=== PATIENT | female | born 1975 | race Caucasian/White ===

== ENCOUNTER 2017-05-12 14:08 | Inpatient (IN) | payer OTHER ==
[2017-05-12] MEDS ORDERED: BUTORPHANOL TARTRATE 1 MG/ML VIAL IVPUSH PRN (15:10)
[2017-05-12] MEDS ORDERED: PROMETHAZINE HCL 25 MG/1 ML VIAL IVPUSH ONE (15:10)
[2017-05-12] MEDS ORDERED: OXYTOCIN 15 UNITS/ LR 250 ML 250 ML IVPB SCH (15:15)
[2017-05-12] MEDS ORDERED: ELECTROLYTE-148 SOLN 1,000 ML IV SCH (15:15)
--- NOTE | 2017-05-12 15:27 | HP ---
Past Medical History - Primary Care Physician PCP:: Gregory Shanks - Admission Chief Complaint: 39 weeks, GDM, AMA. multiparity - Past Medical History Endocrine: Yes: Diabetes Mellitus (diet controlled) - Past Surgical History Hx Myomectomy: No Hx Transabdominal Cerclage: No - Smoking History Smoking history: Never smoked Have you smoked in the past 12 months: No - Alcohol/Substance Use Hx Alcohol Use: No - Social History History of Recent Travel: No Home Medications - Allergies Allergies/Adverse Reactions: Allergies Allergy/AdvReac Type Severity Reaction Status Date / Time No Known Allergies Allergy Verified 05/12/17 14:59 - Home Medications Home Medications: Ambulatory Orders Pnv No.25/Iron Fumarate/FA/Dha [-1 Capsule] 1 each PO DAILY 10/05/12 Review of Systems - Review of Systems Constitutional: reports: No Symptoms, Weakness Eyes: reports: No Symptoms HENT: reports: No Symptoms Neck: reports: No Symptoms Cardiovascular: reports: No Symptoms Respiratory: reports: No Symptoms Gastrointestinal: reports: No Symptoms Genitourinary: reports: No Symptoms Breasts: reports: No Symptoms Reported Musculoskeletal: reports: No Symptoms Integumentary: reports: No Symptoms Neurological: reports: No Symptoms Endocrine: reports: No Symptoms Hematology/Lymphatic: reports: No Symptoms Psychiatric: reports: No Symptoms Physical Exam - Maternity Vital Signs: Vital Signs Temperature 98.1 F 05/12/17 14:10 Pulse Rate 96 H 05/12/17 14:10 Respiratory Rate 20 05/12/17 14:10 Blood Pressure 130/65 05/12/17 14:10 O2 Sat by Pulse Oximetry (%) Constitutional: Yes: Well Nourished, No Distress, Calm Eyes: Yes: WNL, Conjunctiva Clear, EOM Intact HENT: Yes: WNL, Atraumatic, Normocephalic Neck: Yes: WNL, Supple, Trachea Midline Cardiovascular: Yes: WNL, Regular Rate and Rhythm Breast(s): Yes: WNL - Abdominal Exam/OB Fundal Height: 40 Number of Fetuses: Single Presentation: Vertex Contractions: Yes Regularity: Irregular Intensity: Moderate Monitor Mode: External Heart Rate Location: [facility] Category: I Accelerations: Uniform - Vaginal Exam/OB Speculum Exam: No Dilatation (cm): 4 cm Effacement (%): 80 Amniotic Membrane Status: Intact Station: -2 - Physical Exam Musculoskeletal: Yes: WNL Extremities: Yes: WNL Integumentary: Yes: WNL Deep Tendon Reflex Grade: Normal +2 Psychiatric: Yes: WNL Hemorrhage Risk Assessment - Risk Factors Risk Score: 2 Risk Level: High Risk Problem List - Problems (1) with 39 completed weeks gestation Code(s): Z3A.39 - 39 WEEKS GESTATION OF (2) Gestational diabetes mellitus (GDM) Code(s): O24.419 - GESTATIONAL DIABETES MELLITUS IN , UNSP CONTROL Qualifiers: Gestational diabetes mellitus control: diet-controlled Trimester: third trimester Qualified Code(s): O24.410 - Gestational diabetes mellitus in , diet controlled (3) Advanced maternal age (AMA) in Code(s): [id number] - (4) Multiparity, grand, in labor and delivery Code(s): O09.40 - SUPERVISION OF W GRAND MULTIPARITY, UNSP TRIMESTER Qualifiers: Trimester: third trimester Qualified Code(s): O09.43 - Supervision of with grand multiparity, third trimester Assessment/Plan plan admit, pitocin stimulation, fhm
[2017-05-12 15:46] VITALS: BMI 30.6
[2017-05-12 16:27] LABS: BASOPHIL 0.1 % (0-2.0); EOSINOPHIL 0.4 % (0-4.5); MCH 28.7 pg (25.7-33.7); MCHC 32.6 g/dl (32.0-36.0); MEAN PLT VOLUME 8.6 fl (7.5-11.1); NEUTROPHILS 77.4 % (42.8-82.8); PLATELET COUNT 231 K/MM3 (134-434); WHITE BLOOD COUNT 11.8 K/mm3 (4.0-10.0)
[2017-05-12 16:33] LABS: ANION GAP 16 (8-16); CALCIUM 8.7 mg/dL (8.5-10.1); CO2 20 mmol/L (21-32); CREATININE 0.5 mg/dL (0.55-1.02); GLUCOSE,RANDOM 83 mg/dL (74-106)
[2017-05-12 16:35] LABS: INR 0.96 (0.82-1.09); PROTHROMBIN TIME (PATIENT) 10.5 SEC (9.98-11.88)
[2017-05-12 16:38] LABS: ACTIVATED PTT 30.2 SECONDS (26.9-34.4)
[2017-05-12] MEDS ORDERED: BISACODYL 10 MG SUPP.RECT RC PRN (17:37)
[2017-05-12] MEDS ORDERED: ACETAMINOPHEN 325 MG TABLET (FP) PO PRN (17:37)
[2017-05-12] MEDS ORDERED: WITCH HAZEL 50% (TUCKS) 40 PAD/JAR PAD TP PRN (17:37)
[2017-05-12] MEDS ORDERED: IBUPROFEN 600 MG TABLET (FP) PO PRN (17:37)
[2017-05-12] MEDS ORDERED: BENZOCAINE 28 GM HEMORRHOIDAL OINTMENT TP PRN (17:37)
[2017-05-12] MEDS ORDERED: METHYLERGONOVINE MALEATE 0.2 MG/1 ML AMP IM PRN (17:37)
[2017-05-12] MEDS ORDERED: BENZOCAINE 20% 57 GM BOTTLE TP PRN (17:37)
[2017-05-12] MEDS ORDERED: D5W-LR W/ 20 UNITS OXYTOCIN 1,000 ML IV SCH (17:45)
[2017-05-12] MEDS: FERROUS SO4 325 MG TABLET (FP) PO SCH (22:23)
--- NOTE | 2017-05-13 02:34 | PN ---
Progress Note (short form) - Note Progress Note: ppd 1 doing well, no c/o voids ok abdomen soft, non tender , no cva uterus firm lochia minimal plan ambualte. cbc, BGM Problem List - Problems (1) with 39 completed weeks gestation Code(s): Z3A.39 - 39 WEEKS GESTATION OF (2) Gestational diabetes mellitus (GDM) Code(s): O24.419 - GESTATIONAL DIABETES MELLITUS IN , UNSP CONTROL Qualifiers: Gestational diabetes mellitus control: diet-controlled Trimester: third trimester Qualified Code(s): O24.410 - Gestational diabetes mellitus in , diet controlled (3) Advanced maternal age (AMA) in Code(s): [id number] - (4) Multiparity, grand, in labor and delivery Code(s): O09.40 - SUPERVISION OF W GRAND MULTIPARITY, UNSP TRIMESTER Qualifiers: Trimester: third trimester Qualified Code(s): O09.43 - Supervision of with grand multiparity, third trimester
[2017-05-13 06:46] LABS: BASOPHIL 0.1 % (0-2.0); EOSINOPHIL 0.2 % (0-4.5); MCH 28.5 pg (25.7-33.7); MCHC 32.6 g/dl (32.0-36.0); MEAN CELL VOLUME 87.4 fl (80-96); MEAN PLT VOLUME 8.3 fl (7.5-11.1); NEUTROPHILS 79.8 % (42.8-82.8); PLATELET COUNT 243 K/MM3 (134-434); RDW 16.4 % (11.6-15.6); WHITE BLOOD COUNT 15.1 K/mm3 (4.0-10.0)
[2017-05-13] MEDS ORDERED: PRENATAL VITAMINS W/ FOLIC ACID TABLET (FP) PO SCH (10:00)
[2017-05-13] MEDS: FERROUS SO4 325 MG TABLET (FP) PO SCH ×2 (10:09→21:37)
[2017-05-13] MEDS: PRENATAL VITAMINS W/ FOLIC ACID TABLET (FP) PO SCH (10:09)
[2017-05-13] MEDS ORDERED: SENNOSIDES/DOCUSATE COMBO (SENNA PLUS) TABLET (UD) PO PRN (22:00)
[2017-05-14] MEDS: PRENATAL VITAMINS W/ FOLIC ACID TABLET (FP) PO SCH (10:12)
[2017-05-14] MEDS: FERROUS SO4 325 MG TABLET (FP) PO SCH (10:12)
--- NOTE | 2017-05-14 10:52 | PN ---
Post Progress Note Post Day: 2 Type of Delivery: Vital Signs: Vital Signs Temperature 97.8 F 05/13/17 23:22 Pulse Rate 75 05/13/17 23:22 Respiratory Rate 18 05/13/17 23:22 Blood Pressure 111/61 05/13/17 23:22 O2 Sat by Pulse Oximetry (%) 99 05/12/17 18:30 Breast Exam: Yes: Soft Abdomen/GI: Yes: Abdomen soft Lochia: Yes: Rubra Lochia, amount: Small Activity: Ambulating - Labs Labs: CBC WBC 15.1 K/mm3 (4.0-10.0) H 05/13/17 06:15 RBC 4.26 M/mm3 (3.60-5.2) 05/13/17 06:15 Hgb 12.2 GM/dL (10.7-15.3) 05/13/17 06:15 Hct 37.3 % (32.4-45.2) 05/13/17 06:15 MCV 87.4 fl (80-96) 05/13/17 06:15 MCH 28.5 pg (25.7-33.7) 05/13/17 06:15 MCHC 32.6 g/dl (32.0-36.0) 05/13/17 06:15 RDW 16.4 % (11.6-15.6) H 05/13/17 06:15 Plt Count 243 K/MM3 (134-434) 05/13/17 06:15 MPV 8.3 fl (7.5-11.1) 05/13/17 06:15 Neutrophils % 79.8 % (42.8-82.8) 05/13/17 06:15 Lymphocytes % 11.9 % (8-40) D 05/13/17 06:15 Monocytes % 8.0 % (3.8-10.2) 05/13/17 06:15 Eosinophils % 0.2 % (0-4.5) 05/13/17 06:15 Basophils % 0.1 % (0-2.0) 05/13/17 06:15 Assessment/Plan asa above dc home see in 6 weeks
[2017-05-14] MEDS ORDERED: DIPHTH,PERTUSS(ACELL),TET 0.5 ML DISP.SYRIN IM ONE (11:00)
[2017-05-14 12:45] VITALS: BP 99/49; PULSE 66; TEMP 98.1
--- NOTE | 2017-05-16 19:02 | DS ---
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 Signs: Vital Signs Temperature 98.1 F 05/14/17 09:00 Pulse Rate 66 05/14/17 09:00 Respiratory Rate 20 05/14/17 09:00 Blood Pressure 99/49 05/14/17 09:00 O2 Sat by Pulse Oximetry (%) 99 05/12/17 18:30 Constitutional: Yes: Well Nourished, No Distress, Calm Eyes: Yes: WNL, Conjunctiva Clear, EOM Intact HENT: Yes: WNL, Atraumatic, Normocephalic Neck: Yes: WNL, Supple, Trachea Midline Cardiovascular: Yes: WNL, Regular Rate and Rhythm Respiratory: Yes: WNL, Regular, CTA Bilaterally Gastrointestinal: Yes: WNL ...Rectal Exam: Yes: WNL Renal/: Yes: WNL ....Post : Yes: Uterus firm, Uterus non-tender, Slight lochia rubra Breast(s): Yes: WNL Musculoskeletal: Yes: WNL Extremities: Yes: WNL Integumentary: Yes: WNL Neurological: Yes: WNL, Alert, Oriented ...Motor Strength: WNL Psychiatric: Yes: WNL, Alert, Oriented Labs: CBC, BMP 05/13/17 06:15 05/12/17 15:43 Delivery - Delivery Vaginal Delivery: Spontaneous (no complication) Type of Anesthesia: None Episiotomy/Laceration: None EBL (cc): 300 Delivery, Single - Stages of Labor Date 1st Stage Initiatied: 05/12/17 Time 1st Stage Initiated: 14:00 Date 2nd Stage Initiated: 05/12/17 Time 2nd Stage Initiated: 17:20 Date of Delivery: 05/12/17 Time of Delivery: 17:29 Time Placenta Delivered: 17:32 Placenta: Yes: Spontaneous - 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 Referrals: Gregory Shanks MD [Staff Physician] - Disposition: HOME - Home Medications Comprehensive Discharge Medication List: Ambulatory Orders Pnv No.25/Iron Fumarate/FA/Dha [-1 Capsule] 1 each PO DAILY 10/05/12
== END 2017-05-14 14:10 | disposition home or self-care (01) | DRG 560 ==
LOC: JLDR 14:08 → J3W 19:58
PROVIDERS: ADMIT Obstetrics & Gynecology; ATTEND Obstetrics & Gynecology
PROC: 10E0XZZ Delivery of Products of Conception, External Approach (ICD-10-PCS; principal; 2017-05-12)
DX: O24.420 Gestational diabetes mellitus in childbirth, diet controlled (principal); O09.523 Supervision of elderly multigravida, third trimester; Z3A.39 39 weeks gestation of pregnancy; Z37.0 Single live birth
CPT/HCPCS: 36415; 59409; 80048; 85025; 85610; 85730; 86593; 86850; 86900; 86901; 90715

== ENCOUNTER 2017-07-07 05:00 | Day surgery (SDC) | payer OTHER ==
[2017-07-07] MEDS ORDERED: DESFLURANE GAS 240 ML BOTTLE IH ONE (13:34)
[2017-07-07 13:48] VITALS: BMI 21.7
[2017-07-07] MEDS ORDERED: LIDOCAINE HCL/PF 2% SDV 5ML VIAL ONE (14:22)
[2017-07-07] MEDS ORDERED: PROPOFOL 20 ML ONE (14:22)
[2017-07-07] MEDS ORDERED: MIDAZOLAM HCL 2 MG/2 ML SINGLE DOSE VIAL ONE (14:22)
[2017-07-07] MEDS ORDERED: SUCCINYLCHOLINE CHLORIDE 200 MG/10 ML VIAL ONE (14:22)
--- NOTE | 2017-07-07 14:27 | HP ---
Past Medical History - Primary Care Physician PCP:: Gregory Shanks - Admission Chief Complaint: stlization History of Present Illness: 42 yo f requesting laparoscopic tubal ligation, risks and ullternatives has explained to patient History Source: Patient Limitations to Obtaining History: Language Barrier - Past Medical History Endocrine: Yes: Diabetes Mellitus (diet controlled) - Past Surgical History Hx Myomectomy: No Hx Transabdominal Cerclage: No - Smoking History Smoking history: Never smoked Have you smoked in the past 12 months: No - Alcohol/Substance Use Hx Alcohol Use: No - Social History History of Recent Travel: No Home Medications - Allergies Allergies/Adverse Reactions: Allergies Allergy/AdvReac Type Severity Reaction Status Date / Time No Known Allergies Allergy Verified 05/12/17 14:59 - Home Medications Home Medications: Ambulatory Orders Pnv No.25/Iron Fumarate/FA/Dha [-1 Capsule] 1 each PO DAILY 10/05/12 Review of Systems - Review of Systems Constitutional: reports: No Symptoms Eyes: reports: No Symptoms HENT: reports: No Symptoms Neck: reports: No Symptoms Cardiovascular: reports: No Symptoms Respiratory: reports: No Symptoms Gastrointestinal: reports: No Symptoms Genitourinary: reports: No Symptoms Breasts: reports: No Symptoms Reported Musculoskeletal: reports: No Symptoms Integumentary: reports: No Symptoms Neurological: reports: No Symptoms Endocrine: reports: No Symptoms Hematology/Lymphatic: reports: No Symptoms Psychiatric: reports: No Symptoms 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 Vital Signs: Vital Signs Temperature 98.2 F 07/07/17 13:48 Pulse Rate 77 07/07/17 13:48 Respiratory Rate 20 07/07/17 13:48 Blood Pressure 99/63 07/07/17 13:48 O2 Sat by Pulse Oximetry (%) 99 07/07/17 13:48 Constitutional: Yes: Well Nourished, No Distress, Calm Eyes: Yes: WNL, Conjunctiva Clear, EOM Intact HENT: Yes: WNL, Atraumatic, Normocephalic Neck: Yes: WNL, Supple, Trachea Midline Cardiovascular: Yes: WNL, Regular Rate and Rhythm Respiratory: Yes: WNL, Regular, CTA Bilaterally Gastrointestinal: Yes: WNL ...Rectal Exam: Yes: WNL Renal/: Yes: WNL Pelvis: Yes: WNL External Genitalia: Yes: Enterocele Vaginal Exam: Yes: Normal Cervix: Yes: Normal Uterus: Yes: Normal Adnexa: Not Palpable: Left, Right Breast(s): Yes: WNL Musculoskeletal: Yes: WNL Extremities: Yes: WNL Integumentary: Yes: WNL Neurological: Yes: WNL, Alert, Oriented ...Motor Strength: WNL Psychiatric: Yes: WNL, Alert, Oriented Problem List - Problem (1) Sterilization Code(s): Z30.2 - ENCOUNTER FOR STERILIZATION Assessment/Plan lparoscopic tubal cauterization, risks of ectopic and failure risks discussed w th patient
[2017-07-07] MEDS ORDERED: ROCURONIUM BROMIDE 50 MG/5 ML VIAL ONE (14:47)
[2017-07-07] MEDS ORDERED: IBUPROFEN 800 MG/8 ML IJ IVPB PRN (15:04)
[2017-07-07] MEDS ORDERED: oxyCODONE HCL 5 MG TABLET PO PRN ×2 (15:04→15:16)
[2017-07-07] MEDS ORDERED: IBUPROFEN 600 MG TABLET (FP) PO PRN (15:04)
[2017-07-07] MEDS ORDERED: ONDANSETRON 4 MG/2 ML VIAL IVPB PRN (15:04)
[2017-07-07] MEDS ORDERED: ELECTROLYTE-148 SOLN 1,000 ML IV SCH (15:15)
[2017-07-07] MEDS ORDERED: ONDANSETRON 4 MG/2 ML VIAL IVPUSH PRN (15:16)
[2017-07-07] MEDS ORDERED: PROMETHAZINE HCL 25 MG/1 ML VIAL IVPUSH PRN (15:16)
[2017-07-07] MEDS ORDERED: ACETAMINOPHEN 1000 MG/100 ML VIAL (NON FORMULARY) IVPB ONE (15:17)
[2017-07-07] MEDS ORDERED: ACETAMINOPHEN INJECTION 100 ML IVPB ONE (15:42)
[2017-07-07 16:22] VITALS: TEMP 97.9
--- NOTE | 2017-07-07 16:38 | OP ---
DATE OF OPERATION: 07/07/2017 PREOPERATIVE DIAGNOSIS: Voluntary sterilization. POSTOPERATIVE DIAGNOSIS: Voluntary sterilization. PROCEDURE: Laparoscopic bilateral tubal cauterization. SURGEON: Gregory Mathur MD ANESTHESIA: General. ANESTHESIOLOGIST: Wan Guillen MD ESTIMATED BLOOD LOSS: 25 mL DESCRIPTION OF OPERATIVE PROCEDURE: Patient was taken to the operating room, and adequate general anesthesia induced. While in lithotomy position, examination under anesthesia revealed external genitalia to be normal. Vagina was normal. Cervix clean; no lesion. Uterus normal size. Adnexa: No masses were palpable. Then, weighted speculum in the vagina. Anterior lip of the cervix was grasped with a single-tooth tenaculum. Uterine cavity was sounded to 6 cm, and Hulka was introduced for manipulation. Then, Cadena was inserted, and then, patient was prepped and draped for the laparoscopy. A small infraumbilical skin incision was made. Veress needle was introduced. Pneumoperitoneum established. A 5-mm trocar was introduced, and then, scope was introduced. Then, under direct vision, a 5-mm trocar was introduced through the suprapubic area. Visualization of the upper abdomen showed it to be normal. Both tubes and ovaries were normal. Cul-de-sac was free of adhesions. Both ovaries were normal. Then, right tube was grasped with the bipolar cautery and cauterized in 3 portions 2 cm apart. The same procedure repeated for the opposite tube. Visualization of both tubes showed adequate cauterization. Then, no bleeding was seen. Abdomen was emptied of all the gas. Instrument withdrawn. Suprapubic and infraumbilical skin incisions were closed with interrupted sutures of 3-0 Biosyn. The patient tolerated the procedure well, left the OR in good condition. GREGORY MATHUR M.D. [id number]
[2017-07-07 18:59] VITALS: BP 105/53; PULSE 90
== END 2017-07-07 18:15 | disposition home or self-care (01) ==
LOC: JASU-SURG 05:00
PROVIDERS: ATTEND Obstetrics & Gynecology
PROC: 0U574ZZ Destruction of Bilateral Fallopian Tubes, Percutaneous Endoscopic Approach (ICD-10-PCS; principal; 2017-07-07 15:00)
DX: Z30.2 Encounter for sterilization (principal)
CPT/HCPCS: 84703; 94760

== ENCOUNTER 2021-04-26 13:29 | Emergency (ER) | payer OTHER ==
[2021-04-26 13:37] VITALS: BMI 27.9
[2021-04-26 15:04] LABS: BASO % 0.8 % (0-2.0); EOS % 0.6 % (0-4.5); HEMATOCRIT 40.4 % (32.4-45.2); HEMOGLOBIN 13.4 GM/dL (10.7-15.3); LYMPH % 27.4 % (8-40); MCH 29.7 pg (25.7-33.7); MCHC 33.1 g/dl (32.0-36.0); MEAN CELL VOLUME 89.7 fl (80-96); MEAN PLT VOLUME 7.8 fl (7.5-11.1); MONO % 6.9 % (3.8-10.2); NEUT % 64.3 % (42.8-82.8); PLATELET COUNT 319 10^3/uL (134-434); RDW 13.9 % (11.6-15.6)
[2021-04-26 15:25] LABS: ALBUMIN 4.2 g/dl (3.4-5.0); CALCIUM 8.9 mg/dL (8.5-10.1)
[2021-04-26 15:26] LABS: BLOOD UREA NITROGEN 13.9 mg/dL (7-18)
[2021-04-26 15:28] LABS: CREATININE 0.7 mg/dL (0.55-1.3)
[2021-04-26 15:30] LABS: BILIRUBIN,TOTAL 0.5 mg/dL (0.2-1); TOT PROT 7.7 g/dl (6.4-8.2)
[2021-04-26 17:48] VITALS: BP 106/72; PULSE 78; TEMP 98.2
== END 2021-04-26 17:45 | disposition home or self-care (01) ==
LOC: JER 13:29
DX: K80.80 Other cholelithiasis without obstruction (principal)
CPT/HCPCS: 36415; 76705-TC; 80053; 83690; 85025; 93005; 93010; 99285-25

== ENCOUNTER 2021-05-07 04:50 | Day surgery (SDC) | payer OTHER ==
[~2021-05-07 04:50] MED LIST: BUPIVACAINE HCL/PF 0.5% (5 MG/ML) 30 ML VIAL IJ ONE
[2021-05-07] MEDS ORDERED: BUPIVACAINE HCL/PF 0.5% (5MG/ML) 10 ML VIAL ONE (11:59)
[2021-05-07 12:29] VITALS: BMI 27.6
[2021-05-07] MEDS ORDERED: SUCCINYLCHOLINE CHLORIDE 200 MG/10 ML SYRINGE ONE (13:09)
[2021-05-07] MEDS ORDERED: MIDAZOLAM HCL 2 MG/2 ML SINGLE DOSE VIAL ONE (13:09)
[2021-05-07] MEDS ORDERED: ROCURONIUM BROMIDE 50 MG/5 ML SYRINGE ONE (13:09)
[2021-05-07] MEDS ORDERED: PROPOFOL 20 ML ONE ×3 (13:09)
[2021-05-07] MEDS ORDERED: ceFAZolin SODIUM 1 GM VIAL IVPB ONE (13:22)
[2021-05-07] MEDS ORDERED: BUPIVACAINE HCL/PF 0.5% (5 MG/ML) 30 ML VIAL IJ ONE (13:32)
[2021-05-07] MEDS ORDERED: NEOSTIGMINE METHYLSULFATE 0.5 MG/ML - 10 ML MDV ONE (14:20)
[2021-05-07] MEDS ORDERED: ONDANSETRON 4 MG/2 ML VIAL IVPUSH PRN (15:44)
[2021-05-07] MEDS ORDERED: oxyCODONE HCL 5 MG TABLET PO PRN ×2 (15:44)
[2021-05-07] MEDS ORDERED: LACTATED RINGERS SOLUTION 1,000 ML IV SCH (15:45)
[2021-05-07] MEDS ORDERED: ONDANSETRON 4 MG/2 ML VIAL ONE (15:54)
[2021-05-07 17:32] VITALS: PULSE 71
[2021-05-07 17:48] VITALS: BP 108/61; TEMP 98.4
== END 2021-05-07 18:28 | disposition home or self-care (01) ==
LOC: JASU-SURG 04:50
PROVIDERS: ATTEND Surgery
PROC: 0FT44ZZ Resection of Gallbladder, Percutaneous Endoscopic Approach (ICD-10-PCS; principal; 2021-05-07 14:00)
DX: K80.10 Calculus of gallbladder with chronic cholecystitis without obstruction (principal)
CPT/HCPCS: 88304-TC; 94760